=== PATIENT | female | born 1965 | race American Indian/Alaskan Native ===

== ENCOUNTER 2017-05-05 13:03 | Emergency (ER) | payer MEDICAID ==
[2017-05-05 13:23] VITALS: BP 110/77
[2017-05-05] MEDS ORDERED: TORADOL IM ONE (15:51)
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
[2017-05-05] MEDS ORDERED: FLEXERIL PO ONE (15:52)
== END 2017-05-05 16:42 | disposition home or self-care (01) ==
LOC: ED 13:03
DX: S39.012A Strain of muscle, fascia and tendon of lower back, initial encounter (principal); V49.59XA Passenger injured in collision with other motor vehicles in traffic accident, initial encounter; Y93.89 Activity, other specified; Y92.89 Other specified places as the place of occurrence of the external cause; Y99.8 Other external cause status
CPT/HCPCS: 96372; 99282; J1885